=== PATIENT | female | born 1980 | race Caucasian/White ===

== ENCOUNTER 2020-01-13 03:06 | Emergency (ER) | payer SELFPAY ==
[~2020-01-13] VITALS: Ht 172.7 cm; Wt 81.8 kg
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
--- NOTE | 2020-01-13 03:42 | RAD ---
Left wrist x-rays 3 views HISTORY: Left wrist pain after a fall. FINDINGS: No fracture. No dislocation. No arthritic change. Soft tissues are unremarkable. IMPRESSION: Normal exam. Electronically signed by: Dav Garza MD (01/13/2020 3:38 AM) [facility]
--- NOTE | 2020-01-13 03:57 | RAD ---
Left hip AP lateral x-rays with AP pelvis x-ray HISTORY: Left hip pain after a fall. FINDINGS: No fracture or dislocation of the hip. Mild acetabulum spurring as well as spurring at the pubic symphysis indicate mild changes of osteoarthritis. IMPRESSION: No acute osseous injury. Electronically signed by: Dav Garza MD (01/13/2020 3:54 AM) [facility]
[2020-01-13] MEDS ORDERED: NEOMY/BACITR/POLYMYXIN OINT PACKET. TP ONE (04:00)
--- NOTE | 2020-01-13 04:06 | RAD ---
CT head without contrast. CT cervical spine without contrast. PQRS statement: CT scans at this facility use dose reduction including either automated exposure control, iterative reconstructions, and /or weight based radiation dosing via mA and kV modification when appropriate to reduce radiation dose to as low as reasonably achievable. HISTORY: Pain after falling downstairs. CT head findings: No intracranial hemorrhage, mass, hydrocephalus, extra-axial fluid collections or infarction. Orbits, mastoids and bones are unremarkable. IMPRESSION: No acute intracranial CT abnormality. CT cervical spine findings: Craniocervical junction intact. Cervical vertebral body height and alignment intact. No fracture of the cervical spine. Disc height loss and shallow disc osteophytes are present. Lung apices and paraspinal tissues are unremarkable. IMPRESSION: No acute osseous injury of the cervical spine. Cervical disc disease as described above. Electronically signed by: Dav Garza MD (01/13/2020 4:02 AM) [facility]
[2020-01-13 04:19] VITALS: BP 108/82
== END 2020-01-13 04:48 | disposition home or self-care (01) ==
LOC: ER 03:06
DX: S63.592A Other specified sprain of left wrist, initial encounter (principal); S80.12XA Contusion of left lower leg, initial encounter; R60.0 Localized edema; M25.552 Pain in left hip; R20.8 Other disturbances of skin sensation; F10.10 Alcohol abuse, uncomplicated; Z90.89 Acquired absence of other organs; Z98.890 Other specified postprocedural states; Y08.89XA Assault by other specified means, initial encounter; Y93.89 Activity, other specified; Y92.89 Other specified places as the place of occurrence of the external cause; Y99.8 Other external cause status
CPT/HCPCS: 70450; 72125; 73110; 73502; 99285